=== PATIENT | female | born 1950 | race African-American/Black ===

== ENCOUNTER 2018-09-20 12:00 | Inpatient (IN) | payer OTHER ==
[~2018-09-20] VITALS: Ht 177.8 cm; Wt 71.7 kg
[2018-09-20] MEDS ORDERED: ZOLOFT100 MG PO (16:12)
[2018-09-20] MEDS ORDERED: HYZAAR 100-251 EACH PO (16:13)
[2018-09-20] MEDS ORDERED: SYNTHROID150 MCG PO (16:13)
[2018-09-20] MEDS ORDERED: ZOCOR20 MG PO (16:13)
[2018-09-20] MEDS ORDERED: ANTARA30 MG PO (16:13)
[2018-09-28] MEDS ORDERED: XARELTO10 MG PO (07:42)
[2018-09-28] MEDS ORDERED: INTEGRA PLUS C1 EACH PO (07:42)
[2018-09-28] MEDS ORDERED: OXYC1TAB9 PO (07:42)
== END 2018-09-28 21:03 | DRG 470 ==
LOC: RECOVERY 12:00 → SURH 09-25 05:45 → O/R 09-25 05:45 → RECOVERY 09-25 07:00 → SURH 09-25 11:32 → RECOVERY 09-25 12:00 → SURH 09-28 21:03
PROVIDERS: Orthopaedic Surgery Sports Medicine
PROC: 0SRD0J9 Replacement of Left Knee Joint with Synthetic Substitute, Cemented, Open Approach (ICD-10-PCS; principal; 2018-09-25 07:00)
DX: M17.12 Unilateral primary osteoarthritis, left knee (principal)